=== PATIENT | female | born 1960 | race African-American/Black ===

== ENCOUNTER 2024-12-06 14:46 | Emergency (ER) | payer BC ==
[~2024-12-06] VITALS: Ht 167.6 cm; Wt 74.1 kg
[2024-12-06 14:56] VITALS: BP 177/69; TEMP 97.6
[2024-12-06 15:41] LABS: BASOPHILS # (AUTO) 0.1 X10'3 (0-0.2); BASOPHILS % (AUTO) 0.8 % (0-1); EOSINOPHILS # (AUTO) 0.1 X10'3 (0-0.9); EOSINOPHILS % (AUTO) 1.2 % (0-6); HEMATOCRIT 41.3 % (35.0-45.0); HEMOGLOBIN 13.4 g/dl (12.0-16.0); LYMPHOCYTES # (AUTO) 4.7 X10'3 (1.1-4.8); LYMPHOCYTES % (AUTO) 55.7 % (21-51); MEAN CORPUSCULAR HEMOGLOBIN 27.8 PG (27.0-31.0); MEAN CORPUSCULAR HGB CONC 32.4 g/dL (33.0-36.5); MEAN CORPUSCULAR VOLUME 85.6 FL (78-98); MEAN PLATELET VOLUME 9.2 FL (7.4-10.4); MONOCYTES # (AUTO) 0.6 X10'3 (0-0.9); MONOCYTES % (AUTO) 6.8 % (2-12); NEUTROPHILS % (AUTO) 35.5 % (42-75); PLATELET COUNT 280 X10'3 (140-440); RED BLOOD COUNT 4.82 X10'6 (4.20-5.60); RED CELL DISTRIBUTION WIDTH 14.3 % (11.5-14.5); WHITE BLOOD COUNT 8.4 X10'3 (4.5-11.0)
[2024-12-06 15:49] LABS: APTT 26 SECONDS (22-32); PROTHROMBIN TIME 10.8 SECONDS (9.0-12.0)
[2024-12-06 15:50] LABS: ALANINE AMINOTRANSFERASE 23 U/L (12-78); ALBUMIN 4.2 G/DL (3.4-5.0); ALBUMIN/GLOBULIN RATIO 1.1 (1.1-1.5); ALKALINE PHOSPHATASE 99 IU/L (46-116); ANION GAP 9 (8-16); ASPARTATE AMINO TRANSFERASE 21 U/L (10-37); BILIRUBIN,TOTAL 0.6 MG/DL (0.1-1.0); BLOOD UREA NITROGEN 13 MG/DL (7-18); BUN/CREATININE RATIO 17.6 (10.0-20.0); CALCIUM 9.4 MG/DL (8.5-10.1); CHLORIDE 99 MMOL/L (99-107); CREATININE 0.74 MG/DL (0.40-0.90); GLUCOSE 121 MG/DL (70-104); SODIUM 135 MMOL/L (135-145); TOTAL CARBON DIOXIDE 26.8 MMOL/L (24-32); TOTAL PROTEIN 7.9 G/DL (6.4-8.2); eCRCL 74 ML/MIN; eGFR 80 ML/MIN
[2024-12-06 16:00] LABS: PRO BRAIN NATRIURETIC PEPTIDE 32 PG/ML (0-125); THYROID STIMULATING HORMONE 0.74 ulU/ml (0.34-4.50)
[2024-12-06 18:00] LABS: D-DIMER 0.26 MG/L FEU (0-0.50)
[2024-12-06 18:06] VITALS: PULSE 56; RESP 12; O2SAT 100
[2024-12-06] MEDS: ipratropium/albuterol 3ml nebule NEB STA (18:06)
[2024-12-06 18:16] VITALS: PULSE 66; RESP 12; O2SAT 100
[2024-12-06] MEDS: dexamethasone sod phosphate 10mg/ml inj IV STA (19:43)
[2024-12-06] MEDS: potassium bicarbonate/cit acid 25mEq tablet.effervescent PO STA (19:43)
[2024-12-06] MEDS ORDERED: PRED20TA PO (20:39)
[2024-12-06] MEDS ORDERED: ALBU8HFA INH (20:39)
== END 2024-12-06 20:51 | disposition home or self-care (01) ==
LOC: ER 14:47
DX: R42 Dizziness and giddiness (principal); E87.6 Hypokalemia; R06.02 Shortness of breath; I10 Essential (primary) hypertension; Z79.899 Other long term (current) drug therapy
CPT/HCPCS: 36415; 71045; 80053; 83880; 84443; 84484; 85025; 85379; 85610; 85730; 93005; 94640; 96374; 99285; J1100; 94760

== ENCOUNTER 2024-12-09 15:00 | Emergency (ER) | payer BC ==
[~2024-12-09] VITALS: Ht 167.6 cm; Wt 72.7 kg
[~2024-12-09 15:00] MED LIST: ALBU8HFA INH; PRED20TA PO
[2024-12-09 15:53] LABS: BASOPHILS # (AUTO) 0.1 X10'3 (0-0.2); BASOPHILS % (AUTO) 1.2 % (0-1); EOSINOPHILS # (AUTO) 0.1 X10'3 (0-0.9); EOSINOPHILS % (AUTO) 1.2 % (0-6); HEMATOCRIT 42.3 % (35.0-45.0); HEMOGLOBIN 13.9 g/dl (12.0-16.0); LYMPHOCYTES # (AUTO) 2.9 X10'3 (1.1-4.8); LYMPHOCYTES % (AUTO) 42.3 % (21-51); MEAN CORPUSCULAR HEMOGLOBIN 27.8 PG (27.0-31.0); MEAN CORPUSCULAR HGB CONC 32.8 g/dL (33.0-36.5); MEAN CORPUSCULAR VOLUME 84.9 FL (78-98); MONOCYTES # (AUTO) 0.5 X10'3 (0-0.9); MONOCYTES % (AUTO) 7.9 % (2-12); NEUTROPHILS # (AUTO) 3.3 X10'3 (1.8-7.7); NEUTROPHILS % (AUTO) 47.4 % (42-75); PLATELET COUNT 265 X10'3 (140-440); RED BLOOD COUNT 4.99 X10'6 (4.20-5.60); WHITE BLOOD COUNT 6.9 X10'3 (4.5-11.0)
[2024-12-09 16:07] LABS: APTT 29 SECONDS (22-32); INR 1.1 INR
[2024-12-09 16:10] LABS: ALANINE AMINOTRANSFERASE 26 U/L (12-78); ALBUMIN 4.3 G/DL (3.4-5.0); ALBUMIN/GLOBULIN RATIO 1.2 (1.1-1.5); ALKALINE PHOSPHATASE 96 IU/L (46-116); ASPARTATE AMINO TRANSFERASE 22 U/L (10-37); BILIRUBIN,TOTAL 0.6 MG/DL (0.1-1.0); BLOOD UREA NITROGEN 13 MG/DL (7-18); BUN/CREATININE RATIO 21.3 (10.0-20.0); CALCIUM 9.5 MG/DL (8.5-10.1); CREATININE 0.61 MG/DL (0.40-0.90); GLUCOSE 105 MG/DL (70-104); TOTAL CARBON DIOXIDE 27.1 MMOL/L (24-32); eCRCL 90 ML/MIN; eGFR > 90 ML/MIN
[2024-12-09 16:19] LABS: PRO BRAIN NATRIURETIC PEPTIDE < 30 PG/ML (0-125); THYROID STIMULATING HORMONE 1.43 ulU/ml (0.34-4.50)
[2024-12-09 16:55] LABS: ANION GAP 12 (8-16); CHLORIDE 98 MMOL/L (99-107); POTASSIUM 3.2 MMOL/L (3.5-5.1); SODIUM 137 MMOL/L (135-145)
[2024-12-09 17:27] VITALS: TEMP 98.3
[2024-12-09 18:06] LABS: BILIRUBIN,URINE NEGATIVE (Neg); CLARITY,URINE CLEAR (Clear); COLOR,URINE YELLOW (Yellow); GLUCOSE, URINE NEGATIVE (Neg); KETONES,URINE 15 mg/dl (Neg); LEUKOCYTE ESTERASE ,URINE NEGATIVE (Neg); NITRITES, URINE NEGATIVE (Neg); OCCULT BLOOD,URINE NEGATIVE (Neg); PROTEIN,URINE NEGATIVE (Neg); UROBILINOGEN,URINE 0.2 E.U/dL (0.2-1.0)
[2024-12-09 18:14] LABS: UA COLLECTION TYPE CLN CATCH MIDSTREAM
[2024-12-09 18:17] LABS: C-REACTIVE PROTEIN 0.11 MG/DL (0.0-0.5); MAGNESIUM 2.1 MG/DL (1.5-2.4)
[2024-12-09 18:58] LABS: D-DIMER 1.14 MG/L FEU (0-0.50)
[2024-12-09 19:03] LABS: MONOTEST NEGATIVE (Neg)
[2024-12-09] MEDS: meclizine 12.5mg tablet PO ONE (19:18)
[2024-12-09] MEDS: normal saline 1000ml 1,000 ML IV ONE (19:24)
[2024-12-09] MEDS ORDERED: AMLO2.5T2 PO (21:57)
[2024-12-09 22:20] VITALS: BP 157/57; PULSE 56; RESP 16; O2SAT 98
== END 2024-12-09 22:21 | disposition home or self-care (01) ==
LOC: ER 15:01
DX: I10 Essential (primary) hypertension (principal); R42 Dizziness and giddiness; Z79.52 Long term (current) use of systemic steroids; Z20.822 Contact with and (suspected) exposure to COVID-19
CPT/HCPCS: 36415; 70450; 71045; 80053; 81003; 83605; 83735; 83880; 84145; 84443; 84484; 85025; 85379; 85610; 85651; 85730; 86140; 86308; 87040; 87502; 87503; 87811; 93005; 93880; 96360; 99285; J7030; J8597

== ENCOUNTER 2024-12-10 23:30 | Emergency (ER) | payer BC ==
[~2024-12-10] VITALS: Ht 170.2 cm; Wt 56.6 kg
[~2024-12-10 23:30] MED LIST changes: +AMLO2.5T2 PO
[2024-12-11 00:27] LABS: BASOPHILS # (AUTO) 0.1 X10'3 (0-0.2); BASOPHILS % (AUTO) 0.8 % (0-1); EOSINOPHILS # (AUTO) 0.1 X10'3 (0-0.9); HEMATOCRIT 39.5 % (35.0-45.0); HEMOGLOBIN 13.1 g/dl (12.0-16.0); LYMPHOCYTES # (AUTO) 3.1 X10'3 (1.1-4.8); LYMPHOCYTES % (AUTO) 40.2 % (21-51); MEAN CORPUSCULAR HEMOGLOBIN 28.5 PG (27.0-31.0); MEAN CORPUSCULAR HGB CONC 33.2 g/dL (33.0-36.5); MEAN CORPUSCULAR VOLUME 85.7 FL (78-98); MEAN PLATELET VOLUME 8.5 FL (7.4-10.4); MONOCYTES # (AUTO) 0.5 X10'3 (0-0.9); MONOCYTES % (AUTO) 6.3 % (2-12); NEUTROPHILS # (AUTO) 3.9 X10'3 (1.8-7.7); NEUTROPHILS % (AUTO) 51.7 % (42-75); PLATELET COUNT 260 X10'3 (140-440); RED BLOOD COUNT 4.61 X10'6 (4.20-5.60); RED CELL DISTRIBUTION WIDTH 13.7 % (11.5-14.5); WHITE BLOOD COUNT 7.6 X10'3 (4.5-11.0)
[2024-12-11 00:35] LABS: ALANINE AMINOTRANSFERASE 23 U/L (12-78); ALBUMIN 4.1 G/DL (3.4-5.0); ALBUMIN/GLOBULIN RATIO 1.1 (1.1-1.5); ALKALINE PHOSPHATASE 93 IU/L (46-116); ANION GAP 8 (8-16); ASPARTATE AMINO TRANSFERASE 18 U/L (10-37); BILIRUBIN,TOTAL 0.5 MG/DL (0.1-1.0); BLOOD UREA NITROGEN 14 MG/DL (7-18); BUN/CREATININE RATIO 19.7 (10.0-20.0); CALCIUM 9.3 MG/DL (8.5-10.1); CHLORIDE 101 MMOL/L (99-107); CREATININE 0.71 MG/DL (0.40-0.90); GLUCOSE 120 MG/DL (70-104); POTASSIUM 4.1 MMOL/L (3.5-5.1); PRO BRAIN NATRIURETIC PEPTIDE 34 PG/ML (0-125); SODIUM 139 MMOL/L (135-145); TOTAL CARBON DIOXIDE 29.7 MMOL/L (24-32); TOTAL PROTEIN 7.8 G/DL (6.4-8.2); eCRCL 73 ML/MIN; eGFR > 90 ML/MIN
[2024-12-11 03:14] VITALS: BP 192/99; PULSE 78; RESP 15; O2SAT 99
[2024-12-11 03:42] VITALS: TEMP 98.6
[2024-12-11] MEDS: cloNIDine 0.1 mg tablet PO ONE (03:47)
== END 2024-12-11 03:50 | disposition home or self-care (01) ==
LOC: ER 23:30
DX: I10 Essential (primary) hypertension (principal); Z79.899 Other long term (current) drug therapy
CPT/HCPCS: 36415; 71045; 80053; 83880; 84484; 85025; 93005; 99283; 99285

== ENCOUNTER 2024-12-20 11:40 | Emergency (ER) | payer BC ==
[~2024-12-20] VITALS: Ht 170.2 cm; Wt 73.0 kg
[~2024-12-20 11:40] MED LIST changes: -PRED20TA PO
[2024-12-20] MEDS: LORazepam 1 MG tablet PO ONE (13:03)
[2024-12-20 13:07] VITALS: BP 137/57; PULSE 58; RESP 12; TEMP 97.6; O2SAT 100
== END 2024-12-20 13:15 | disposition home or self-care (01) ==
LOC: ER 11:41
DX: I10 Essential (primary) hypertension (principal); F41.9 Anxiety disorder, unspecified; Z79.899 Other long term (current) drug therapy
CPT/HCPCS: 99283